=== PATIENT | female | born 1955 | race Caucasian/White ===

== ENCOUNTER 2016-11-26 13:19 | Day surgery (SDC) | payer OTHER ==
[~2016-11-26] VITALS: Ht 154.9 cm; Wt 51.1 kg
[2016-11-26 14:05] VITALS: Ht 154.9 cm; Wt 51.1 kg
[2016-11-26] MEDS ORDERED: VALSARTAN (14:12)
[2016-11-26] MEDS ORDERED: METFORMIN (14:12)
[2016-11-26] MEDS ORDERED: RALOXIFENE (14:12)
[2016-11-26] MEDS ORDERED: VITAMIN D (14:12)
[2016-11-26] MEDS ORDERED: ACYCLOVIR (14:12)
[2016-11-26 14:15] VITALS: BP 132/64; PULSE 80; RESP 18
[2016-11-26] MEDS ORDERED: LIDOCAINE 4% SOLUTION 50 ML BTL ONE (14:15)
[2016-11-26 14:24] VITALS: BP 115/58; PULSE 76; RESP 14
[2016-11-26] MEDS ORDERED: DEXTROSE 5%-0.45% NACL 500 ML IV SCH (14:30)
[2016-11-26] MEDS ORDERED: INSULIN REGULAR, HUMAN 100 UNIT/1 ML 3ML VIAL IV SCH (14:30)
[2016-11-26] MEDS ORDERED: INSULIN ASPART [NOVOLOG] 3 ML PEN SC SCH (15:00)
[2016-11-26] MEDS ORDERED: MIDAZOLAM 1 MG/ML 2 ML INJ ONE ×2 (15:15)
[2016-11-26] MEDS ORDERED: FENTAnyl 50 MCG/ML VIAL ONE (15:15)
--- NOTE | 2016-11-27 04:29 | GILP ---
DATE OF PROCEDURE: 11/26/2016 PREOPERATIVE DIAGNOSIS: Abdominal pain, weight loss. PROCEDURE DONE: Esophagogastroduodenoscopy and biopsy. POSTOPERATIVE DIAGNOSES: Diffuse gastritis with erosions. DESCRIPTION OF PROCEDURE: The patient was put in the left lateral decubitus after obtaining informe d consent. Posterior pharynx was anesthetized with 4% Xylocaine. Then 3 mg of IV Versed given, 50 mcg of IV given of fentanyl. I advanced the Olympus video upper endoscop e into the esophagus, stomach and duodenum. Esophagus is normal except mild esophagitis at the GE j unction and in the stomach, diffuse gastritis with erosions noted. This was photographed and biopsie s randomly done. Duodenum was easily entered. Duodenal bulb first and second part normal. Then the scope was withdrawn. The patient had no complication. PLAN: Await for biopsy report. Meanwhile, we will start her on Omeprazole 20 mg every day. She will follow up as outpatient. Also refer to the colonoscopy report. Dictated By: ESTRADA VAZQUEZ Conf#: [id number] DID#: [id number] CC: Yadiel Bowie;*EndCC*
--- NOTE | 2016-11-27 04:31 | GILP ---
DATE OF PROCEDURE: 11/26/2016 PREOPERATIVE DIAGNOSIS: Abdominal pain, weight loss. PROCEDURE DONE: Colonoscopy. POSTOPERATIVE DIAGNOSIS: Fixed transverse colon, large internal hemorrhoids grade III. DESCRIPTION OF PROCEDURE: The patient was put in the left lateral decubitus after obtaining informe d consent after EGD. Further monitoring was done. She received 1 mg of IV Versed and 25 mcg of fen tanyl. Then I advanced an Olympus video colonoscope with some difficulty through a transverse colon due to fixed transverse colon. It was looping in this area. After straightening out, I was able to get to the cecum. Ileocecal valve and appendiceal opening were noted. Examination of the cecum, as cending colon, transverse colon other than fixed transverse colon unremarkable. Descending colon, s igmoid colon, mildly tortuous, but no other abnormalities. Rectum and rectosigmoid unremarkable exc ept on retroflexion, antegrade, large internal hemorrhoids grade III were noted. This was photograp hed also. Then the scope was withdrawn. Patient had no complication. If the patient continues to lose weight, consider further workup for any intra-abdominal process wit h a CT scan of the abdomen and pelvis. Dictated By: ESTRADA VAZQUEZ Conf#: [id number] DID#: [id number] CC: Yadiel Bowie;*EndCC*
== END 2016-11-26 15:57 | disposition home or self-care (01) ==
LOC: GIL 13:19
PROVIDERS: ATTEND Internal Medicine
DX: K64.2 Third degree hemorrhoids (principal); K29.60 Other gastritis without bleeding; I10 Essential (primary) hypertension; E11.9 Type 2 diabetes mellitus without complications
CPT/HCPCS: 43239; 45378; 82962; 88305; 88312; J1815; J2250; J3010